=== PATIENT | female | born 1985 | race Caucasian/White ===

== ENCOUNTER 2016-08-27 16:31 | Emergency (ER) | payer OTHER ==
[~2016-08-27] VITALS: Ht 157.5 cm; Wt 69.8 kg
[~2016-08-27 16:31] MED LIST: FLEXERIL10 MG PO; KLONOPIN0.5 M1 PO; KLONOPIN1 MG PO; MONDOXYNE NL100 MG PO; MOTRIN800 MG PO; NAPROSYN500 MG PO; NEXIUM20 MG PO; OMEPRAZOLE40 M1 PO; PERCOCET 5/31 TABLET PO; PRENATAL TABLE1 EACH PO; PRILOSEC40 MG PO; PROMETHAZINE HC25 M1 PO; PROTONIX20 MG PO; PROTONIX40 MG PO; RANITIDINE HCL150 MG PO; REGLAN10 MG PO; SHAROBEL0.35 MG PO; TIZANIDINE HCL4 M1 PO; TRAZODONE HCL100 MG PO; TYLENOL EXTRA500 MG PO; VALIUM5 MG PO; ZANAFLEX4 M1 PO; ZANTAC150 MG PO; ZOFRAN ODT4 MG PO; ZOLOFT100 MG PO; ZOLOFT50 MG PO
[2016-08-27 17:41] LABS: HEMATOCRIT 40.2 % (36.0-46.0); MCH 27.9 PG (29.0-34.0); MCHC 32.6 G/DL (30.0-36.0); MCV 85.5 FL (83-99); MEAN PLAT.VOLUME 9.2 uM^3 (9.5-12.4); PLATELET COUNT 299 K/uL (156-360); RBC DIS.WIDTH-CV 13.2 % (11.8-14.6); RBC DIS.WIDTH-SD 41.1 % (39-53); WHITE BLOOD COUNT 9.8 K/uL (4.1-10.2)
[2016-08-27 18:19] LABS: ADD MIUA? YES; BILIRUBIN NEGATIVE; BLOOD LARGE; COLOR STRAW ((YELLOW)); GLUCOSE (STRIP) NEGATIVE; KETONES NEGATIVE; LEUKOCYTES NEGATIVE; NITRITE NEGATIVE; PROTEIN (STRIP) NEGATIVE; SPECIFIC GRAVITY 1.005 (1.000-1.030); UROBILINOGEN 0.2 MG/DL (0.2-1.0)
[2016-08-27 18:24] LABS: BACTERIA RARE /HPF; EPITHELIAL CELLS RARE /HPF; MUCUS NONE SEEN /LPF; RED BLOOD CELLS NONE SEEN /HPF (0-5); UCUL ADDED? NO; WHITE BLOOD CELLS 0-5 /HPF (0-5)
[2016-08-27] MEDS ORDERED: ZOFRAN ODT4 MG PO (21:10)
[2016-08-27 22:56] VITALS: BP 134/89
== END 2016-08-27 23:39 | disposition home or self-care (01) ==
LOC: EME 16:31
DX: O46.92 Antepartum hemorrhage, unspecified, second trimester (principal); Z3A.22 22 weeks gestation of pregnancy; Z87.891 Personal history of nicotine dependence
CPT/HCPCS: 76801; 81003; 83030; 84702; 85027; 86900; 86901; 99281; 99284; J2790

== ENCOUNTER → 2016-12-27 | Outpatient (CLI) | payer OTHER ==
[~2016-12-27] VITALS: Ht 157.5 cm; Wt 74.0 kg
[~2016-12-27] MED LIST changes: +MELATIN3 MG PO
[2016-12-27 13:10] VITALS: BP 119/61
== END | disposition home or self-care (01) ==
LOC: IVINF 12:55
DX: Z31.82 Encounter for Rh incompatibility status (principal)
CPT/HCPCS: 96372; J2790

== ENCOUNTER 2017-03-11 06:24 | Inpatient (IN) | payer OTHER ==
[~2017-03-11] VITALS: Ht 157.5 cm; Wt 77.6 kg
[2017-03-11 07:34] VITALS: BP 119/71
[2017-03-11 07:50] LABS: BASOPHIL (%) 0.3 % (0-1); EOSINOPHIL (%) 0.4 % (0-5); HEMATOCRIT 32.1 % (36.0-46.0); HEMOGLOBIN 10.1 G/DL (11.9-15.5); IMMATURE GRANULOCYTE (%) 0.3 % (0.0-0.7); LYMPHOCYTE (%) 25.1 % (15-42); LYMPHOCYTE COUNT 1.9 K/uL (1.0-2.8); MCH 25.9 PG (29.0-34.0); MCHC 31.5 G/DL (30.0-36.0); MCV 82.3 FL (83-99); MONOCYTE (%) 5.2 % (3-12); MONOCYTE COUNT 0.4 K/uL (0-0.8); NEUTROPHIL (%) 68.7 % (45-76); NEUTROPHIL COUNT 5.1 K/uL (1.8-6.4); PLATELET COUNT 194 K/uL (156-360); RBC DIS.WIDTH-CV 12.8 % (11.8-14.6); RBC DIS.WIDTH-SD 38.7 % (39-53); WHITE BLOOD COUNT 7.5 K/uL (4.1-10.2)
[2017-03-11 13:08] VITALS: BP 108/62
[2017-03-11 20:00] VITALS: BP 98/53
[2017-03-12 02:32] VITALS: BP 105/56
[2017-03-12 06:32] LABS: BASOPHIL (%) 0.2 % (0-1); EOSINOPHIL (%) 0.2 % (0-5); HEMATOCRIT 27.6 % (36.0-46.0); HEMOGLOBIN 8.7 G/DL (11.9-15.5); IMMATURE GRANULOCYTE (%) 0.3 % (0.0-0.7); LYMPHOCYTE COUNT 1.6 K/uL (1.0-2.8); MCH 26.1 PG (29.0-34.0); MCHC 31.5 G/DL (30.0-36.0); MCV 82.9 FL (83-99); MONOCYTE (%) 5.1 % (3-12); MONOCYTE COUNT 0.5 K/uL (0-0.8); NEUTROPHIL (%) 76.2 % (45-76); NEUTROPHIL COUNT 6.9 K/uL (1.8-6.4); PLATELET COUNT 145 K/uL (156-360); RBC DIS.WIDTH-CV 12.8 % (11.8-14.6); RBC DIS.WIDTH-SD 38.7 % (39-53); RED BLOOD COUNT 3.33 M/uL (3.80-5.20)
[2017-03-12 07:40] VITALS: BP 100/51
[2017-03-13] MEDS ORDERED: ASCORBIC ACID500 M3 PO (10:15)
[2017-03-13] MEDS ORDERED: ENDOCET 5-3251 EACH PO (10:15)
[2017-03-13] MEDS ORDERED: IBUPROFEN800 MG PO (10:15)
[2017-03-13] MEDS ORDERED: FERROUS SULFAT325 MG PO (10:15)
== END 2017-03-13 11:20 | disposition home or self-care (01) | DRG 765 ==
LOC: 2WEST 06:24 → 2SOUTH 09:57 → 2WEST 03-13 11:20
PROVIDERS: Obstetrics & Gynecology
DX: O34.211 Maternal care for low transverse scar from previous cesarean delivery (principal); D62 Acute posthemorrhagic anemia; F33.9 Major depressive disorder, recurrent, unspecified; O99.354 Diseases of the nervous system complicating childbirth; O36.0931 Maternal care for other rhesus isoimmunization, third trimester, fetus 1; K90.41 Non-celiac gluten sensitivity; Z37.0 Single live birth; Z30.432 Encounter for removal of intrauterine contraceptive device; O99.52 Diseases of the respiratory system complicating childbirth; Z3A.39 39 weeks gestation of pregnancy; D50.9 Iron deficiency anemia, unspecified; O99.02 Anemia complicating childbirth; E66.3 Overweight; F41.9 Anxiety disorder, unspecified; O69.81X1 Labor and delivery complicated by cord around neck, without compression, fetus 1; O99.344 Other mental disorders complicating childbirth; O62.2 Other uterine inertia; G43.909 Migraine, unspecified, not intractable, without status migrainosus; O12.04 Gestational edema, complicating childbirth; O26.33 Retained intrauterine contraceptive device in pregnancy, third trimester; Z91.410 Personal history of adult physical and sexual abuse; R00.2 Palpitations; Z68.31 Body mass index [BMI] 31.0-31.9, adult; Z87.891 Personal history of nicotine dependence; Z83.79 Family history of other diseases of the digestive system; Z82.5 Family history of asthma and other chronic lower respiratory diseases; Z82.49 Family history of ischemic heart disease and other diseases of the circulatory system; Z82.3 Family history of stroke; Z81.8 Family history of other mental and behavioral disorders; Z80.52 Family history of malignant neoplasm of bladder
CPT/HCPCS: 85025; 86850; 86870; 86900; 86901; 86905; 86920; 93005; J0690; J1200; J1885; J2210; J2274; J3010; J7120